=== PATIENT | male | born 1960 | race Caucasian/White ===

== ENCOUNTER 2018-06-11 10:46 | Emergency (ER) | payer MEDICAID, OTHER ==
[~2018-06-11] VITALS: Ht 170.2 cm; Wt 77.1 kg
[2018-06-11 11:02] VITALS: BP 172/90
--- NOTE | 2018-06-11 11:02 | NUR ---
PATIENT AMBULATED TO BED 5.
--- NOTE | 2018-06-11 11:09 | NUR ---
58 Y M BIB SELF C/O L HIP PAIN 01/02. PT STATES PAIN HAS WORSENED OVER THE LAST 4 MONTHS. PAIN WITH AMBULATION AND DAILY ACTIVITIES. [id number]. VSS AT THIS TIME. PT STATES HE HAD SURGERY IN 1999 ON HIS L HIP. PMH- TREATED FOR HEP C
--- NOTE | 2018-06-11 11:51 | NUR ---
DR FRIEDMAN AT BEDSIDE
--- NOTE | 2018-06-11 11:55 | NUR ---
X-RAY AT BEDSIDE
--- NOTE | 2018-06-11 13:01 | NUR ---
Patient discharged with v/s stable. Written and verbal after care instructions given and explained. Patient alert, oriented and verbalized understanding of instructions. Ambulatory with steady gait. All questions addressed prior to discharge. ID band removed. Patient advised to follow up with PMD. Rx of NAPROSYN/NORCO given. Patient educated on indication of medication including possible reaction and side effects. Opportunity to ask questions provided and answered. RADIOLOGY CD AND READ HANDED TO PT--PT STATED HE WILL F/U [facility] TOMORROW
[2018-06-11 13:02] VITALS: BP 114/70
== END 2018-06-11 13:01 | disposition home or self-care (01) ==
LOC: MED 10:46
DX: M16.12 Unilateral primary osteoarthritis, left hip (principal)
CPT/HCPCS: 72170; 73502; 99283